=== PATIENT | female | born 1945 | race Caucasian/White ===

== ENCOUNTER 2017-02-02 11:22 | Emergency (ER) | payer MEDICARE, OTHER ==
[~2017-02-02 11:22] MED LIST: ASPIRIN PO; BUTALBITAL PO; CALCIUM WITH D PO; CODEINE PO; FOLI1TAB PO; HYDR200T42 PO; METH2.5 PO; OCUVTAB PO; OMEP20CA5 PO; SUMA100T2 PO; TAB-TAB PO; TIZA4 PO; VITA500T10 PO; VITALIQ PO
[2017-02-02 11:25] VITALS: BP 109/51; PULSE 51; RESP 16; TEMP 98.2; O2SAT 100
[2017-02-02] MEDS ORDERED: METH8TAB3 PO (11:40)
[2017-02-02] MEDS ORDERED: ALPR0.25 PO (11:40)
[2017-02-02] MEDS ORDERED: METO1TAB42 PO (11:40)
--- NOTE | 2017-02-02 12:06 | PD ---
HPI Chief Complaint: Injury Time Seen by Provider: 11:37 Travel History International Travel<30 days: No Contact w/Intl Traveler<30days: No Traveled to known affect area: No History of Present Illness HPI while visiting family, was at stands when she tripped and fell landing mostly on her right hip/shoulder on fall......denies loc, witnessed and helped up, has been ambulating on her own without assistance. decided to come here for a checkup. right shoulder is limited mobility, 08/30, [facility] Past Medical History Arthritis: Yes Coronary Artery Disease: Yes Influenza Vaccination: Yes Past Surgical History Neurologic Surgery: Yes (cervical spine) Tonsillectomy: Yes Social History Alcohol Use: Yes Tobacco Use: No Substance Use: No Allergies-Medications (Allergen,Severity, Reaction): Coded Allergies: No Known Allergies (Verified Allergy, Mild, 02/02/17) Reported Meds & Prescriptions Reported Meds & Active Scripts Active Reported Metoprolol Succinate ER 24 HR (Metoprolol Succinate) 25 Mg Tab 25 Mg PO DAILY Methylprednisolone 8 Mg Tab 4 Mg PO DAILY Alprazolam 0.25 Mg Tab 0.25 Mg PO TID PRN [Ocuvite] 1 PO DAILY [Calcium With D] 600 PO DAILY Vitamin C (Ascorbic Acid) 500 Mg Tab 500 Mg PO DAILY [Vitamin E] 400 PO DAILY Multivitamin (Multivitamins) 1 Tab Tab 1 Tab PO DAILY Folate (Folic Acid) 1 Mg Tab 1 Mg PO DAILY Prilosec 20 mg (Omeprazole) 20 Mg Capcr 20 Mg PO DAILY Rheumatrex (Methotrexate) 2.5 Mg Tab 2.5 Mg PO 3 TAB WEEKLY Zanaflex 4 mg (Tizanidine HCl) 4 Mg Tab 4 Mg PO BID Plaquenil (Hydroxychloroquine Sulfate) 200 Mg Tab 200 Mg PO BID [Butalbital/Asa/Cod] 30 PO PRN Imitrex (Sumatriptan Succinate) 100 Mg Tab 100 Mg PO PRN Review of Systems Except as stated in HPI: all other systems reviewed are Neg General / Constitutional: No: Fever Eyes: No: Visual changes HENT: No: Headaches Cardiovascular: No: Chest Pain or Discomfort Respiratory: No: Shortness of Breath Gastrointestinal: No: Abdominal Pain Genitourinary: No: Dysuria Musculoskeletal: Positive: Limited ROM (rt shoulder and hip pain) Skin: No Rash Neurologic: No: Weakness Psychiatric: No: Depression Endocrine: No: Polydipsia Hematologic/Lymphatic: No: Easy Bruising Physical Exam Narrative GENERAL: SKIN: Warm and dry. HEAD: Atraumatic. Normocephalic. EYES: Pupils equal and round. No scleral icterus. No injection or drainage. ENT: No nasal bleeding or discharge. Mucous membranes pink and moist. NECK: Trachea midline. No JVD. CARDIOVASCULAR: Regular rate and rhythm. RESPIRATORY: No accessory muscle use. Clear to auscultation. Breath sounds equal bilaterally. GASTROINTESTINAL: Abdomen soft, non-tender, nondistended. MUSCULOSKELETAL: Extremities without clubbing, cyanosis, or edema. No obvious deformities. NEUROLOGICAL: Awake and alert. No obvious cranial nerve deficits. Motor grossly within normal limits. Five out of 5 muscle strength in the arms and legs. Normal speech. PSYCHIATRIC: Appropriate mood and affect; insight and judgment normal. Data Data Last Documented VS Vital Signs Date Time Temp Pulse Resp B/P (MAP) Pulse Ox O2 Delivery O2 Flow Rate FiO2 02/02/17 11:25 98.2 51 16 109/51 (70) 100 Orders Orders Shoulder, Complete (>2vws) (02/02/17 ) Hip, Uni(4+Vws) W Ap Pelvis (02/02/17 ) MDM Medical Decision Making Medical Screen Exam Complete: Yes Emergency Medical Condition: Yes Medical Record Reviewed: Yes Differential Diagnosis fx v dislocation v contusion Narrative Course upon eval of xrays no e/o fx or dislocation noted, patient will be discharged with a few ultram for breakthrough pain Diagnosis Primary Impression: shoulder and hip (right) contusion Disposition: 01 DISCHARGE HOME Condition: Stable Kang Wolf MD Feb 02, 2017 12:06
--- NOTE | 2017-02-02 13:06 | RADRPT ---
EXAM DATE/TIME: 02/02/2017 12:31 [facility] COMPARISON: No previous studies available for comparison. INDICATIONS : Patient states right hip pain after fall. MEDICAL HISTORY : None. SURGICAL HISTORY : None. ENCOUNTER: Initial ACUITY: 2 days PAIN SCORE: 6/10 LOCATION: Right Hip FINDINGS: There is some lucency at the inferior acetabulum on the right side. It is unclear if this is of fract ure or lytic area. This is better evaluated with CT examination. Mild osteoarthritis left hip. CONCLUSION: 1. Nonspecific lucency with questionable cortical disruption of the inferior right acetabular region. Recommend further evaluation with CT. Kendall Oliver MD on February 02, 2017 at 12:59 Board Certified Radiologist. This report was verified electronically.
--- NOTE | 2017-02-02 13:09 | RADRPT ---
EXAM DATE/TIME: 02/02/2017 12:33 [facility] COMPARISON: No previous studies available for comparison. INDICATIONS : Patient states right shoulder pain after a fall. MEDICAL HISTORY : None. SURGICAL HISTORY : None. ENCOUNTER: Initial ACUITY: 2 days PAIN SCORE: 6/10 LOCATION: Right Shoulder FINDINGS: Multiple view examination of the right shoulder demonstrates no evidence of fracture or dislocation. The glenohumeral and acromioclavicular joints are maintained. There is normal range of motion betwe en internal and external rotation. Bony mineralization is normal. CONCLUSION: Normal examination for a patient of this age. Kendall Oliver MD on February 02, 2017 at 13:05 Board Certified Radiologist. This report was verified electronically.
[2017-02-02] MEDS ORDERED: TRAM50 PO (14:03)
[2017-02-02 14:41] VITALS: BP 127/61
== END 2017-02-02 18:19 | disposition home or self-care (01) ==
LOC: NEPD 11:22
DX: S40.011A Contusion of right shoulder, initial encounter (principal); S70.01XA Contusion of right hip, initial encounter; Z87.39 Personal history of other diseases of the musculoskeletal system and connective tissue; Z86.79 Personal history of other diseases of the circulatory system; W01.0XXA Fall on same level from slipping, tripping and stumbling without subsequent striking against object, initial encounter
CPT/HCPCS: 73030; 73503; 99284